=== PATIENT | female | born 1990 | race Caucasian/White ===

== ENCOUNTER 2021-05-02 13:48 | Emergency (ER) | payer OTHER, MEDICAID, SELFPAY ==
[2021-05-02 14:03] VITALS: BP 103/63; PULSE 81; TEMP 37.3; O2SAT 98
[2021-05-02 14:04] VITALS: BP 103/63; PULSE 90; RESP 18; TEMP 37.3; O2SAT 98; BMI 21.5
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
[2021-05-02 15:10] VITALS: BP 110/62; PULSE 62; RESP 15; O2SAT 97
[2021-05-02] MEDS: BUPRENORPHINE/NALOXONE 8MG/2MG 1 TAB 2.5 TAB SL (15:14)
--- NOTE | 2021-05-02 15:48 | PC.NURSE ---
1/2 tab suboxone waste witnessed by Wilbur MEZA
== END 2021-05-02 15:15 | disposition home or self-care (01) ==
PROVIDERS: Emergency Provider Emergency Medicine
DX: Z76.0 Encounter for issue of repeat prescription (principal)
CPT/HCPCS: 81003; 81025; 99283